=== PATIENT | male | born 1965 | race African-American/Black ===

== ENCOUNTER → 2017-01-10 | Outpatient (CLI) | payer BC ==
[~2017-01-10] MED LIST: EFAVTAB PO; LSN/2025 PO; METO50TA7 PO; OXYC-57 PO
--- NOTE | 2017-01-10 15:40 | DIAGNOSTIC IMAGING REPORT ---
RIGHT SHOULDER 3 VIEWS HISTORY: RIGHT SHOULDER PAIN Right COMPARISON: None. FINDINGS: There is no fracture or dislocation. Soft tissues are unremarkable. The right clavicle is intact. There is mild AC joint arthrosis. There is a large dorsal osteophyte at the distal clavicle. Mild cartilage space narrowing and tiny marginal osteophytes at the glenohumeral joint consistent with mild osteoarthritis. IMPRESSION: No fractures. Mild osteoarthritis within the right shoulder as described above Electronically signed by: Bonilla Castro M.D. 01/10/2017 3:38 PM Dictated Date/Time: 01/10/2017 3:36 PM
== END | disposition home or self-care (01) ==
LOC: C.RAD1850 15:24
PROVIDERS: ATTEND Family Medicine
DX: M25.511 Pain in right shoulder (principal)

== ENCOUNTER → 2017-04-26 | Outpatient (CLI) | payer BC, OTHER ==
[2017-04-26 09:32] LABS: BASO % 0.2 %; BASO ABS # 0.01 K/uL (0-0.2); COMPLETE YES; HEMATOCRIT 45.8 % (42-52); IG% 0.2 %; LYMPH % 47.7 %; LYMPH ABS # 2.25 K/uL (1.2-3.4); MEAN CELL VOLUME 90.7 fL (80-100); MEAN CORPUSCULAR HEMOGLOBIN 27.9 pg (25-34); MEAN CORPUSCULAR HGB CONC 30.8 g/dl (32-36); MEAN PLATELET VOLUME 10.3 fL (7.4-10.4); MONO % 6.1 %; NEUT % 42.8 %; PLATELET COUNT 239 K/uL (130-400); RED BLOOD COUNT 5.05 M/uL (4.7-6.1); WHITE BLOOD COUNT 4.72 K/uL (4.8-10.8)
[2017-04-26 09:49] LABS: ALT/SGPT 38 U/L (12-78); BLOOD UREA NITROGEN 14 mg/dl (7-18); BUN/CREATININE RATIO 14.2 (10-20); CARBON DIOXIDE 30 mmol/L (21-32); CHLORIDE 107 mmol/L (98-107); CHOLESTEROL 204 mg/dl (0-200); GLUCOSE 95 mg/dl (70-99); POTASSIUM 3.6 mmol/L (3.5-5.1); SODIUM 143 mmol/L (136-145)
[2017-04-26 09:51] LABS: ALB/GLOB RATIO 1.1 (0.9-2); ALKALINE PHOSPHATASE 74 U/L (45-117); AST/SGOT 28 U/L (15-37); CHOLESTEROL/HDL RATIO 4.3; HDL CHOLESTEROL 47 mg/dl; LDL CHOLESTEROL CALCULATED 137 mg/dl; TRIGLYCERIDES 102 mg/dl (0-150); VERY LOW DENSITY LIPOPROT CALC 20 mg/dl
[2017-04-26 13:22] LABS: CALCIUM 9.3 mg/dl (8.5-10.1)
[2017-04-27 02:07] LABS: RAPID PLASMA REAGIN REACTIVE (NONREACT)
[2017-04-27 02:16] LABS: RAPID PLASMA REAGIN TITRE 8 DILS (NR)
[2017-04-29 18:39] LABS: CHLAMYDIA TRACH RNA*** NOT DETECTED (NOT DETECTED); GC (NEIS GONORRHOEAE)RNA** NOT DETECTED (NOT DETECTED); LSP % CELLS ANALYZED CD4 35 % (30-61); LSP ABSOLUTE CT CD4 790 cells/uL (490-1740); LSP LYMPHOCYTES ABSOLUTE 2246 cells/uL (850-3900)
== END | disposition home or self-care (01) ==
LOC: C.LAB1850 08:07
PROVIDERS: ATTEND Internal Medicine Infectious Disease
DX: B20 Human immunodeficiency virus [HIV] disease (principal)

== ENCOUNTER → 2017-08-08 | Outpatient (CLI) | payer BC ==
[2017-08-08 09:43] LABS: BASO % 0.4 %; BASO ABS # 0.02 K/uL (0-0.2); COMPLETE YES; HEMATOCRIT 41.8 % (42-52); IG% 0.2 %; LYMPH % 44.6 %; LYMPH ABS # 2.27 K/uL (1.2-3.4); MEAN CELL VOLUME 88.4 fL (80-100); MEAN CORPUSCULAR HEMOGLOBIN 28.1 pg (25-34); MEAN CORPUSCULAR HGB CONC 31.8 g/dl (32-36); MEAN PLATELET VOLUME 10.4 fL (7.4-10.4); MONO % 8.1 %; NEUT % 44.7 %; PLATELET COUNT 274 K/uL (130-400); RED BLOOD COUNT 4.73 M/uL (4.7-6.1); WHITE BLOOD COUNT 5.09 K/uL (4.8-10.8)
[2017-08-08 10:09] LABS: ALT/SGPT 38 U/L (12-78); BLOOD UREA NITROGEN 12 mg/dl (7-18); BUN/CREATININE RATIO 10.7 (10-20); CALCIUM 8.6 mg/dl (8.5-10.1); CARBON DIOXIDE 28 mmol/L (21-32); CHLORIDE 105 mmol/L (98-107); CHOLESTEROL 181 mg/dl (0-200); GLUCOSE 138 mg/dl (70-99); SODIUM 141 mmol/L (136-145); TRIGLYCERIDES 139 mg/dl (0-150); VERY LOW DENSITY LIPOPROT CALC 28 mg/dl
[2017-08-08 10:12] LABS: ALKALINE PHOSPHATASE 66 U/L (45-117); AST/SGOT 25 U/L (15-37); HDL CHOLESTEROL 45 mg/dl; LDL CHOLESTEROL CALCULATED 108 mg/dl
[2017-08-09 03:36] LABS: RAPID PLASMA REAGIN REACTIVE (NONREACT)
[2017-08-09 04:32] LABS: RAPID PLASMA REAGIN TITRE 4 DILS (NR)
[2017-08-09 20:38] LABS: LSP % CELLS ANALYZED CD4 31 % (30-61); LSP ABSOLUTE CT CD4 630 cells/uL (490-1740); LSP LYMPHOCYTES ABSOLUTE 2043 cells/uL (850-3900)
[2017-08-09 23:47] LABS: CHLAMYDIA TRACH RNA*** NOT DETECTED (NOT DETECTED); GC (NEIS GONORRHOEAE)RNA** NOT DETECTED (NOT DETECTED)
== END | disposition home or self-care (01) ==
LOC: C.LAB1850 07:12
PROVIDERS: ATTEND Internal Medicine Infectious Disease
DX: B20 Human immunodeficiency virus [HIV] disease (principal); Z20.2 Contact with and (suspected) exposure to infections with a predominantly sexual mode of transmission

== ENCOUNTER → 2018-02-06 | Outpatient (CLI) | payer BC ==
[~2018-02-06] MED LIST changes: -METO50TA7 PO; +METO50TA8 PO
[2018-02-06 09:41] LABS: BASO % 0.4 %; BASO ABS # 0.02 K/uL (0-0.2); EOS % 2.5 %; EOS ABS # 0.14 K/uL (0-0.5); HEMATOCRIT 45.6 % (42-52); HEMOGLOBIN 14.6 g/dL (14.0-18.0); IG# 0.01 K/uL (0.00-0.02); LYMPH % 47.6 %; LYMPH ABS # 2.62 K/uL (1.2-3.4); MEAN CELL VOLUME 89.9 fL (80-100); MEAN CORPUSCULAR HEMOGLOBIN 28.8 pg (25-34); MONO % 6.7 %; MONO ABS # 0.37 K/uL (0.11-0.59); NEUT % 42.6 %; NEUT ABS # 2.34 K/uL (1.4-6.5); PLATELET COUNT 244 K/uL (130-400); RED CELL DISTRIBUTION WIDTH CV 13.3 % (11.5-14.5); RED CELL DISTRIBUTION WIDTH SD 43.7 fL (36.4-46.3)
[2018-02-06 10:04] LABS: ALBUMIN 3.8 gm/dl (3.4-5.0); ALT/SGPT 55 U/L (12-78); AST/SGOT 26 U/L (15-37); BLOOD UREA NITROGEN 12 mg/dl (7-18); CALCIUM 8.8 mg/dl (8.5-10.1); CARBON DIOXIDE 29 mmol/L (21-32); CREATININE 1.27 mg/dl (0.60-1.40); GLUCOSE 107 mg/dl (70-99); POTASSIUM 3.3 mmol/L (3.5-5.1); SODIUM 141 mmol/L (136-145)
[2018-02-06 10:07] LABS: ALKALINE PHOSPHATASE 78 U/L (45-117); CHOLESTEROL 191 mg/dl (0-200); LDL CHOLESTEROL CALCULATED 122 mg/dl
[2018-02-08 17:38] LABS: LSP % CELLS ANALYZED CD4 28 % (30-61); LSP ABSOLUTE CT CD4 709 cells/uL (490-1740)
== END | disposition home or self-care (01) ==
LOC: C.LAB1850 07:21
PROVIDERS: ATTEND Internal Medicine Infectious Disease
DX: B20 Human immunodeficiency virus [HIV] disease (principal)